=== PATIENT | male | born 1965 | race Caucasian/White ===

== ENCOUNTER 2018-10-12 05:26 | Emergency (ER) | payer BC ==
[2018-10-12 05:40] LABS: HEMATOCRIT 47.4 % (42.0-52.0); MEAN CELL VOLUME 92.4 fl (81-97); MEAN CORPUSCULAR HEMOGLOBIN 31.2 pg (27-33); MEAN CORPUSCULAR HGB CONC 33.8 g/dl (32-36); MEAN PLATELET VOLUME 8.8 fl (7.4-10.4); PLATELET COUNT 283 K/uL (130-400); RED BLOOD COUNT 5.13 M/uL (4.40-5.70); RED CELL DISTRIBUTION WIDTH 13.5 % (11.5-14.5); WHITE BLOOD COUNT W/O DIFF 14.8 K/uL (4.2-12.2)
--- NOTE | 2018-10-12 05:43 | Emergency Department Record ---
History of Present Illness - General Chief Complaint: Chest Pain Stated Complaint: CHEST PAIN Source: Patient Mode of Arrival: Ambulatory Limitations: No limitations - History of Present Illness Initial Comments: 53 yo male presents to ED for evaluation of chest pain symptoms that began approximately 5-6 hours ago. Patient reports "it felt like my heart attack that I had 4 years ago". Patient reports previous WI without stenting, was told his lesion was only 60%. Patient also reports productive cough symptoms and chills, reports that he is a current smoker and a history of COPD. MD Complaint: Chest pain Onset/Timin -: Hour(s) Onset: During rest Pain Radiation: LUE Severity scale (1-10): 5 Consistency: Constant Improves With: Nothing Worsens With: Nothing Other Symptoms: Cough Treatments Prior to Arrival: None - Related Data Allergies Allergy/AdvReac Type Severity Reaction Status Date / Time No Known Drug Allergies Allergy Unverified 10/02/18 07:13 Travel Screening - Travel/Exposure Within Last 30 Days Have you traveled within the last 30 days?: No Review of Systems Constitutional: Reports: Chills, Fever, Malaise. Denies: Night sweats, Weakness Eyes: Denies: Eye discharge, Eye pain ENT: Denies: Congestion, Ear pain, Epistaxis Respiratory: Reports: Cough, Dyspnea Cardiovascular: Reports: Chest pain, Dyspnea on exertion Endocrine: Denies: Fatigue, Heat or cold intolerance Gastrointestinal: Denies: Abdominal pain, Nausea, Vomiting Genitourinary: Denies: Incontinence, Retention Musculoskeletal: Denies: Arthralgia, Back pain Skin: Denies: Bruising, Change in color Neurological: Denies: Abnormal gait, Confusion Psychiatric: Denies: Anxiety Hematological/Lymphatic: Denies: Anemia, Blood Clots Past Medical History - SOCIAL HISTORY Smoking Status: Current every day smoker Alcohol Use: None Drug Use: None - RESPIRATORY Hx Respiratory Disorders: Yes Hx COPD: Yes - CARDIOVASCULAR Hx Cardio Disorders: Yes Hx Cardiac Cath: Yes (2011) Hx Chest Pain: Yes Hx Heart Attack: Yes (No stents, 2011) - NEURO Hx Neuro Disorders: No - GI Hx GI Disorders: Yes Hx Reflux: Yes (takes otc zantac intermittently) - Hx Genitourinary Disorders: No - ENDOCRINE Hx Endocrine Disorders: No - MUSCULOSKELETAL Hx Musculoskeletal Disorders: No - PSYCH Hx Psych Problems: No - HEMATOLOGY/ONCOLOGY Hx Hematology/Oncology Disorders: No Family Medical History Any Significant Family History?: No Physical Exam - General General Appearance: Alert, Oriented x3, Cooperative, Moderate distress Limitations: No limitations - Head Head exam: Atraumatic, Normocephalic, Normal inspection Head exam detail: negative: Abrasion, Contusion, Velasquez's sign, General tenderness, Hematoma, Laceration - Eye Eye exam: Normal appearance. negative: Conjunctival injection, Periorbital swelling, Periorbital tenderness, Scleral icterus - ENT Nasal Exam: negative: Active bleeding, Discharge, Dried blood, Foreign body Mouth exam: negative: Drooling, Laceration, Tongue elevation - Neck Neck exam: Normal inspection. negative: Meningismus, Tenderness - Respiratory Respiratory exam: Decreased breath sounds. negative: Rales, Respiratory distress, Rhonchi, Stridor - Cardiovascular Cardiovascular Exam: Normal rhythm, Normal heart sounds, Tachycardia - GI/Abdominal GI/Abdominal exam: Soft. negative: Rebound, Rigid, Tenderness - Rectal Rectal exam: Deferred - exam: Deferred - Extremities Extremities exam: Normal inspection. negative: Calf tenderness, Pedal edema, Tenderness - Back Back exam: Denies: CVA tenderness (R), CVA tenderness (L) - Neurological Neurological exam: Alert, Normal gait, Oriented X3 - Psychiatric Psychiatric exam: Normal affect, Normal mood - Skin Skin exam: Normal color. negative: Abrasion Type of lesion: negative: abrasion Course Vital Signs 10/12/18 05:27 Temperature 99.6 F Pulse Rate 122 H Respiratory 20 Rate Blood Pressure 189/104 Pulse Ox 95 - Reevaluation(s) Reevaluation #1: 10/12/18 05:38 EKG: Sinus tachycardia 108 Normal axis, normal intervals No acute ST-T wave changes Reevaluation #2: 10/12/18 06:08 Laboratory studies were reviewed: WBC 14.8 with 85% Neutrophils Troponin normal. Patient is in CT for imaging at this time. Reevaluation #3: 10/12/18 07:07 CTA Chest: No PE Mild mediastinal lymphadenopathy Emphysema Patient was updated on all results thus far, recommended transfer for further cardiac evaluation given his previous coronary lesion and previous WI. Patient reports that his last admission cost him $15,000 and he can't afford that. Patient is however willing to stay for repeat 3-hour troponin to ensure that NSTEMI is excluded. Risks of , permanent impairment, or worsening of their current condition were discussed as well as the benefit of transfer for further evaluation of his chest pain symptoms. Patient verbalizes understanding of all risks and benefits, and desires to leave AMA following repeat troponin despite these risks. Based on my examination, the patient is alert, oriented, and answers all questions appropriately. Patient appears to have the capacity to make rational decisions based on my examination. Patient was encouraged to return to the ED immediately if they change their mind about treatment and want to be re-evaluated. Case was discussed with on-coming provider, will assume care pending repeat troponin with plan of care for AMA discharge per patient's decision. Medical Decision Making - Lab Data Result diagrams: 10/12/18 05:39 10/12/18 05:39 Disposition Disposition: Discharge Clinical Impression: Chest pain Qualifiers: Chest pain type: unspecified Qualified Code(s): R07.9 - Chest pain, unspecified CAD (coronary artery disease) Qualifiers: Coronary Disease-Associated Artery/Lesion type: [place] artery [place] vs. transplanted heart: [place] heart Associated angina: angina presence unspecified Qualified Code(s): I25.10 - Atherosclerotic heart disease of [place] coronary artery without angina pectoris COPD (chronic obstructive pulmonary disease) Qualifiers: COPD type: unspecified COPD Qualified Code(s): J44.9 - Chronic obstructive pulmonary disease, unspecified Disposition: Against Medical Advice Condition: (2) Stable Instructions: Chest Pain (ED) Additional Instructions: Return to ED if your symptoms worsen or if you have any concerns. Follow-up with your family doctor in 1-3 days as directed. Forms: Patient Portal Access Time of Disposition: 07:13 Quality - Quality Measures Quality Measures: N/A - Blood Pressure Screening Does Patient Have Any of the Following: Active Dx of HTN Blood Pressure Classification: Hypertensive Reading Systolic Measurement: 189 Diastolic Measurement: 104 Screening for High Blood Pressure: Patient Exclusion, Hx of HTN [G9744]
[2018-10-12] MEDS: ASPIRIN 81 MG CHEWABLE TABLET PO ONE (05:45)
[2018-10-12 05:52] LABS: ALBUMIN 4.4 g/dL (4.0-5.0); ALKALINE PHOSPHATASE 95 U/L (40-129); ALT/SGPT 23 U/L (<41); AST/SGOT 22 U/L (10.0-50.0); BLOOD UREA NITROGEN 10 mg/dL (6-20)
[2018-10-12 05:53] LABS: ALB/GLOB RATIO 1.3 (1.1-1.8); CREATININE 0.9 mg/dL (0.7-1.2); EST GLOMERULAR FILTRATION RATE > 60 mL/min; GLUCOSE,RANDOM 121 mg/dL (74-109); TOTAL PROTEIN 7.7 g/dL (6.6-8.7)
--- NOTE | 2018-10-12 07:48 | Emergency Department Record ---
History of Present Illness - General Chief Complaint: Chest Pain Stated Complaint: CHEST PAIN Time Seen by Provider: 10/12/18 05:44 Source: Patient Mode of Arrival: Ambulatory Limitations: No limitations - History of Present Illness Onset/Timin -: Hour(s) Onset: During rest Pain Radiation: LUE Severity scale (1-10): 5 Consistency: Constant Improves With: Nothing Worsens With: Nothing Other Symptoms: Cough Treatments Prior to Arrival: None - Related Data Previous Rx's Medication Instructions Recorded Azithromycin 250 mg PO DAILY #6 tablet 10/12/18 Prednisone [Prednisone 10Mg] 10 mg PO ASDIR #30 tab 10/12/18 Allergies Allergy/AdvReac Type Severity Reaction Status Date / Time No Known Drug Allergies Allergy Unverified 10/02/18 07:13 Travel Screening - Travel/Exposure Within Last 30 Days Have you traveled within the last 30 days?: No Review of Systems Constitutional: Reports: Chills, Fever, Malaise. Denies: Night sweats, Weakness Eyes: Denies: Eye discharge, Eye pain ENT: Denies: Congestion, Ear pain, Epistaxis Respiratory: Reports: Cough, Dyspnea Cardiovascular: Reports: Chest pain, Dyspnea on exertion Endocrine: Denies: Fatigue, Heat or cold intolerance Gastrointestinal: Denies: Abdominal pain, Nausea, Vomiting Genitourinary: Denies: Incontinence, Retention Musculoskeletal: Denies: Arthralgia, Back pain Skin: Denies: Bruising, Change in color Neurological: Denies: Abnormal gait, Confusion Psychiatric: Denies: Anxiety Hematological/Lymphatic: Denies: Anemia, Blood Clots Past Medical History - SOCIAL HISTORY Smoking Status: Current every day smoker Alcohol Use: None Drug Use: None - RESPIRATORY Hx Respiratory Disorders: Yes Hx COPD: Yes - CARDIOVASCULAR Hx Cardio Disorders: Yes Hx Cardiac Cath: Yes (2011) Hx Chest Pain: Yes Hx Heart Attack: Yes (No stents, 2011) - NEURO Hx Neuro Disorders: No - GI Hx GI Disorders: Yes Hx Reflux: Yes (takes otc zantac intermittently) - Hx Genitourinary Disorders: No - ENDOCRINE Hx Endocrine Disorders: No - MUSCULOSKELETAL Hx Musculoskeletal Disorders: No - PSYCH Hx Psych Problems: No - HEMATOLOGY/ONCOLOGY Hx Hematology/Oncology Disorders: No Family Medical History Any Significant Family History?: No Physical Exam - General General Appearance: Alert, Oriented x3, Cooperative, No acute distress Limitations: No limitations - Head Head exam: Normal inspection - Eye Eye exam: Normal appearance, PERRL Pupils: Normal accommodation - ENT ENT exam: Normal exam, Mucous membranes moist, Normal external ear exam, Normal orophraynx, TM's normal bilaterally Ear exam: Normal external inspection. negative: External canal tenderness Nasal Exam: Normal inspection. negative: Discharge, Sinus tenderness Mouth exam: Normal external inspection, Tongue normal Teeth exam: Normal inspection. negative: Dental caries Throat exam: Normal inspection. negative: Tonsillar erythema, Tonsillar exudate - Neck Neck exam: Normal inspection, Full ROM. negative: Tenderness - Respiratory Respiratory exam: Wheezes. negative: Respiratory distress - Cardiovascular Cardiovascular Exam: Regular rate, Normal rhythm, Normal heart sounds, Other ( chest pain reproducible with coughing and palpation of ribs) - GI/Abdominal GI/Abdominal exam: Soft, Normal bowel sounds. negative: Tenderness - Rectal Rectal exam: Deferred - exam: Deferred - Extremities Extremities exam: Normal inspection, Full ROM, Normal capillary refill. negative: Tenderness - Back Back exam: Reports: Normal inspection, Full ROM. Denies: Muscle spasm, Rash noted, Tenderness - Neurological Neurological exam: Alert, Normal gait, Oriented X3, Reflexes normal - Psychiatric Psychiatric exam: Normal affect, Normal mood - Skin Skin exam: Dry, Intact, Normal color, Warm Course Vital Signs 10/12/18 10/12/18 10/12/18 05:27 06:35 07:02 Temperature 99.6 F Pulse Rate 122 H Pulse Rate [ 112 H 88 Pulse Ox Probe] Respiratory 20 20 20 Rate Blood Pressure 189/104 Blood Pressure 138/83 157/82 [Left Arm] Pulse Ox 95 93 L 94 L - Reevaluation(s) Reevaluation #1: took over care from at 7:15 am on 10/12/2018. Report from Dr. Fonseca and he is scheduled to have a repeat trop t and to sign out AMA and to follow up with his family Reviewed ED chart and EKG sinus tachycardia rate 108 and labs reviewed and CTA chest negative for a PE. Patient was given an ASA initially in the ED. 10/12/18 07:43 10/12/18 07:47 Reevaluation #2: patient's second trop T was negative and he has a cougha nd his chest hurts with coughing and he has a hoarse voice. Wheezing with deep inspirations and coughing. Patient smokes cigars 3/ day . I recommended he stop for his health. Patient is aware he has to sign out ama because he doesn't want to go to [facility] for a cardiology evaluation. Patient is bring up yellow sputum. 10/12/18 09:09 Medical Decision Making - Lab Data Result diagrams: 10/12/18 05:39 10/12/18 05:39 Lab Results 10/12/18 10/12/18 Range/Units 05:39 05:39 WBC 14.8 H (4.2-12.2) K/uL RBC 5.13 (4.40-5.70) M/uL Hgb 16.0 (14.0-18.0) gm/dl Hct 47.4 (42.0-52.0) % MCV 92.4 (81-97) fl MCH 31.2 (27-33) pg MCHC 33.8 (32-36) g/dl RDW 13.5 (11.5-14.5) % Plt Count 283 (130-400) K/uL MPV 8.8 (7.4-10.4) fl Neutrophils % 85.0 H (47-80) % Band Neutrophils % 0.0 (0-5) % Eosinophils % Not Reportable Basophils % Not Reportable Lymphocytes 6.0 L (16-45) % Monocytes 8.0 (0-9) % Basophils 0.0 (0-6) % Eosinophil Count 1.0 (0-6) % Sodium 136 (136-145) mmol/L Potassium 4.4 (3.4-4.5) mmol/L Chloride 96 L (98-107) mmol/L Carbon Dioxide 26.0 (22-29) mmol/L Anion Gap 14.0 (7-16) BUN 10 (6-20) mg/dL Creatinine 0.9 (0.7-1.2) mg/dL Estimated GFR > 60 mL/min Random Glucose 121 H (74-109) mg/dL Calcium 9.8 (8.6-10.0) mg/dL Total Bilirubin 0.40 (0.2-1.0) mg/dL AST 22 (10.0-50.0) U/L ALT 23 (<41) U/L Alkaline Phosphatase 95 (40-129) U/L Troponin T < 0.010 (0-0.010) ng/mL Total Protein 7.7 (6.6-8.7) g/dL Albumin 4.4 (4.0-5.0) g/dL Globulin 3.3 (1.4-4.8) gm/dL Albumin/Globulin Ratio 1.3 (1.1-1.8) Disposition Clinical Impression: Bronchitis Chest pain Qualifiers: Chest pain type: unspecified Qualified Code(s): R07.9 - Chest pain, unspecified CAD (coronary artery disease) Qualifiers: Coronary Disease-Associated Artery/Lesion type: [place] artery [place] vs. transplanted heart: [place] heart Associated angina: angina presence unspecified Qualified Code(s): I25.10 - Atherosclerotic heart disease of [place] coronary artery without angina pectoris COPD (chronic obstructive pulmonary disease) Qualifiers: COPD type: unspecified COPD Qualified Code(s): J44.9 - Chronic obstructive pulmonary disease, unspecified Disposition: Against Medical Advice Condition: (2) Stable Instructions: Chest Pain (ED) Additional Instructions: Return to ED if your symptoms worsen or if you have any concerns. Follow-up with your family doctor in 1-[address] Blake. start azithromycin use your albuterol inhaler two puffs every 4 hours use prednisone taper as directed on the bottle. use robitussin DM 10 ml every 4 hours for his cough Prescriptions: Azithromycin 250 mg PO DAILY #6 tablet Prednisone [Prednisone 10Mg] 10 mg PO ASDIR #30 tab Forms: Patient Portal Access Time of Disposition: 09:18 Quality - Quality Measures Quality Measures: N/A - Blood Pressure Screening Does Patient Have Any of the Following: No Blood Pressure Classification: Hypertensive Reading Systolic Measurement: 189 Diastolic Measurement: 104 Screening for High Blood Pressure: < Pre-Hypertensive BP, F/U Documented > [ G8950] Pre-Hypertensive Follow-up Interventions: Referral to alternative/primary care provider.
[2018-10-12 08:55] LABS: CKMB 1.6 ng/mL (<6.73)
--- NOTE | 2018-10-14 09:30 | CT ANGIOGRAM REPORT ---
EXAM: CTA OF THE CHEST WITH CONTRAST HISTORY: CHEST PAIN. TECHNIQUE: Standard CT angiography of the chest was obtained with MIP reformatted images after the intravenous administration of contrast. Type and dose of contrast recorded in the electronic medical record. Comparison: None. FINDINGS: No aortic aneurysm or dissection. No filling defects are identified within the pulmonary arteries. There is no pericardial effusion. There are enlarged bilateral hilar and mediastinal lymph nodes. A right hilar lymph node measures up to 14 mm, left hilar lymph node measures up to 17 mm, a lymph node in the AP window measures 17 mm, and a subcarinal lymph node measures 16 mm. These are given in short axis diameter. There are other enlarged mediastinal lymph nodes. There are several tiny hypodense lesions in the liver that are too small to characterize. 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 The bones are unremarkable. Severe centrilobular and paraseptal emphysema. There is mild smooth intralobular septal thickening at the lung bases suggesting mild interstitial edema. No focal consolidation. IMPRESSION: 1. NO PULMONARY EMBOLUS. 2. FINDINGS SUGGESTING MILD PULMONARY INTERSTITIAL EDEMA WHICH CAN BE SEEN WITH HEART FAILURE OR FLUID OVERLOAD. 3. BILATERAL HILAR AND MEDIASTINAL ADENOPATHY, WHICH CAN BE REACTIVE IN THE SETTING OF HEART FAILURE. FOLLOW-UP CHEST CT IS RECOMMENDED IN THREE MONTHS TO INSURE STABILITY/RESOLUTION GIVEN THE SIZE OF THE LYMPH NODES. 4. SEVERE EMPHYSEMA. JOB NUMBER: [id number] [facility]
== END 2018-10-12 09:26 | disposition left against medical advice (07) ==
LOC: ER 05:26
DX: R07.9 Chest pain, unspecified (principal); J02.9 Acute pharyngitis, unspecified; I25.10 Atherosclerotic heart disease of native coronary artery without angina pectoris; J44.0 Chronic obstructive pulmonary disease with (acute) lower respiratory infection; I10 Essential (primary) hypertension; I25.2 Old myocardial infarction; F17.210 Nicotine dependence, cigarettes, uncomplicated
CPT/HCPCS: 99284 ×2; 82553; 80053; 84484; 85027; 71275; 93005; 93010; Q9967